=== PATIENT | female | born 1995 | race Caucasian/White ===

== ENCOUNTER → 2018-07-17 13:32 | Outpatient (CLI) | payer BC, SELFPAY ==
[2018-07-17 11:57] VITALS: BMI 28.0
[2018-07-17 17:34] LABS: Chlamydia Trachomatis by PCR Negative (Negative); Neisserai gonorrhoeae by PCR Negative (Negative); Probe Check PASS; Sample Adequacy Control PASS; Specimen Processing Control PASS
[2018-07-19 12:45] LABS: HPV Reflexed? NOT INDICATED
== END ==
PROVIDERS: Family Provider Pediatrics; PCP Pediatrics; Referring Provider Nurse Practitioner Women's Health; Visit Provider Nurse Practitioner Women's Health
DX: Z12.4 Encounter for screening for malignant neoplasm of cervix (principal); Z11.3 Encounter for screening for infections with a predominantly sexual mode of transmission
CPT/HCPCS: 87491; 87591; 87624; 88175; G0145

== ENCOUNTER 2020-06-18 09:20 | Day surgery (SDC) | payer MEDICAID, SELFPAY ==
[2018-07-17 11:57] VITALS: BMI 28.0
[2020-06-18] VITALS (7 sets, daily range): BP systolic 105–127; BP diastolic 69–94; PULSE 60–83; RESP 14–16; TEMP 36.1–36.6; O2SAT 95–100; BMI 32.3
[2020-06-18 10:24] LABS: Internal QC Validated? YES +Cl - CLEAR BKGD; Pregnancy, Urine Negative Negative
[2020-06-18] MEDS: Lactated Ringers 1,000 ML 100 ML IV (10:47)
[2020-06-18] MEDS: Cefazolin 2 GM in 0.9% Normal Saline 100 ML IV (11:09)
[2020-06-18] MEDS: Epinephrine (1 mg/ml) 1 MG/ML VIAL (11:30)
[2020-06-18] MEDS: Bupiv/Epi 0.5% Mpf 30 ML Vial (11:45)
--- NOTE | 2020-06-18 11:59 | PCM.OPRPT ---
Report of Operation Date of Procedure: 06/18/20 Pre-Operative Diagnosis: Medial meniscus tear left knee Post-Operative Diagnosis: same Surgery/Procedure Performed:: Arthroscopic partial medial meniscectomy Type of Anesthesia:: General Anesthesiologist: Vicente George - Admit VTE Documentation VTE Present on Admission: No VTE Mechan Device Prophylaxis: SCD's, Thigh High SHAUNA Hose VTE Pharm Prophylaxis ordered?: No Reason prophylaxis not ordered:: Treatment Not Indicated
[2020-06-18] MEDS: HYDROcodone Bitartrate/Apap 5/325 Tablet PO (13:29)
== END 2020-06-18 13:57 | disposition home or self-care (01) ==
LOC: SDC 09:38 → AC 09:38
PROVIDERS: Anesthesiology; Referring Provider Orthopaedic Surgery; Visit Provider Orthopaedic Surgery
PROC: (CPT 29870; principal; 2020-06-18 10:35)
DX: S83.242A Other tear of medial meniscus, current injury, left knee, initial encounter (principal); X58.XXXA Exposure to other specified factors, initial encounter; Y93.9 Activity, unspecified; Y92.9 Unspecified place or not applicable; Y99.9 Unspecified external cause status; K21.9 Gastro-esophageal reflux disease without esophagitis; F32.9 Major depressive disorder, single episode, unspecified; F41.9 Anxiety disorder, unspecified; F17.210 Nicotine dependence, cigarettes, uncomplicated; Z20.828 Contact with and (suspected) exposure to other viral communicable diseases
CPT/HCPCS: 29881; 81025; 87426; C9803; J7120; J2405

== ENCOUNTER → 2021-07-04 08:40 | Outpatient (CLI) | payer MEDICAID, SELFPAY | PROVIDERS: Referring Provider Orthopaedic Surgery; Visit Provider Orthopaedic Surgery | DX: Z20.822 Contact with and (suspected) exposure to COVID-19 (principal) | CPT/HCPCS: 87426; C9803 ==

== ENCOUNTER 2021-07-11 10:37 | Outpatient (CLI) | payer MEDICAID, SELFPAY ==
[2021-07-11 12:20] LABS: Absolute Lymphocyte Count 1.86 X10^3/uL (0.83-4.51); Absolute Neutrophil Count 4.4 X10^3/uL (2.0-7.7); Basophil# 0.07 X10^3/uL; Basophil% 0.9 % (0-1); Eosinophil# 0.64 X10^3/uL; Eosinophils% 8.4 % (0-5); Hematocrit 45.8 % (37-47); Lymphocyte # 1.86 X10^3/ul (0.83-4.51); Lymphocyte % 24.4 % (19-41); Mean Corp Hgb Conc 32.8 g/dL (32-36); Mean Corpuscular Hgb 28.4 pg (27.0-32.0); Mean Corpuscular Volume 86.7 fL (81-99); Mean Platelet Vol. 10.4 fl (6.2-12.0); Monocyte# 0.65 X10^3/uL; Monocyte% 8.5 % (0-10); NRBC Flagged by Analyzer 0 % (0-5); Neutrophil # 4.37 X10^3/uL (2.7-7.7); Neutrophil % 57.5 % (47-70); Platelet Count 311 K/mm3 (150-450); RBC Distribution Width SD 40.8 fl (35.1-43.9); Red Blood Count 5.28 M/mm3 (4.2-5.4); White Blood Count 7.6 K/mm3 (4.4-11.0)
[2021-07-11 13:24] LABS: Anion Gap 7 (5-15); BUN 15 mg/dL (7-18); BUN/Creat Ratio 17.3 RATIO (10-20); Calcium,Total 9.4 mg/dL (8.5-10.1); Chloride 104 mmol/L (98-107); Creatinine, Serum 0.87 mg/dL (0.55-1.02); EST Glomerular Filtration Rate 85 mL/min (>60); Est Glom Filt Rate - Afr Amer 103 mL/min (>60); Glucose 83 mg/dL (74-106); Potassium 3.9 mmol/L (3.5-5.1); Sodium Level 135 mmol/L (136-145)
== END 2021-07-11 23:59 | disposition home or self-care (01) ==
LOC: MTLAB 10:38
PROVIDERS: PCP Internal Medicine Infectious Disease; Referring Provider Orthopaedic Surgery; Visit Provider Orthopaedic Surgery
DX: Z01.812 Encounter for preprocedural laboratory examination (principal)
CPT/HCPCS: 36415; 80048; 85025

== ENCOUNTER 2021-10-20 14:04 | Emergency (ER) | payer MEDICAID, SELFPAY ==
[2021-10-20 14:05] VITALS: BP 110/76; PULSE 91; RESP 16; TEMP 36.4; O2SAT 97; BMI 31.4
--- NOTE | 2021-10-20 14:13 | ED.RN ---
PT. WAS SCHEDULED FOR US TODAY AT 1630, BUT PAIN BECAME WORSE.
--- NOTE | 2021-10-20 14:19 | US_ITS ---
STUDY: ULTRASOUND OF THE FEMALE PELVIS - COMPLETE REASON FOR EXAM: Female, 26 years old. Pelvic pain -- New IUD placed 2 days ago LMP: 1 year ago. TECHNIQUE: Transvaginal TECHNICAL QUALITY: Adequate. COMPARISON: None. FINDINGS: The uterus is anteverted and is in a midline position. The uterus measures 6.7 cm x 4.1 cm x 3.1 cm. Normal uterine cervix. The endometrium measures 4 mm in thickness, and is hyperechoic. There is no demonstrated endometrial mass. There is no demonstrated myometrial mass. I.U.D. - The patient does have an I.U.D. The right ovary is visualized. The right ovary measures 3.3 cm x 2.1 cm x 2.9 cm. There is no right ovarian cyst or ovarian mass. There is no visualized right adnexal mass or complex lesion. There is normal arterial and normal venous vascularity. The left ovary is visualized. The left ovary measures 2.8 cm x 1.7 cm x 2.1 cm. There is no left ovarian cyst or ovarian mass. There is no visualized left adnexal mass or complex lesion. There is normal arterial and normal venous vascularity. There is no fluid in the cul-de-sac. US/Transvaginal Non- IMPRESSION: Normal female pelvis. IUD is in good position. Electronically Signed: Dominguez Rausch MD at 15:20 EDT ,
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
[2021-10-20] MEDS: Ondansetron 4 MG/2 ML Vial IV (14:30)
[2021-10-20] MEDS: Ketorolac 15 MG/ML Vial IV (14:30)
[2021-10-20] MEDS: 0.9% Normal Saline 1,000 ML 1000 ML IV (14:30)
[2021-10-20 15:35] VITALS: BP 106/73; PULSE 73; RESP 14; O2SAT 100
[2021-10-20 16:55] VITALS: BP 106/72; PULSE 77; RESP 18; O2SAT 96
== END 2021-10-20 16:57 | disposition home or self-care (01) ==
PROVIDERS: Emergency Provider Emergency Medicine; PCP Internal Medicine Infectious Disease; Visit Provider Emergency Medicine
DX: R10.2 Pelvic and perineal pain (principal); F17.210 Nicotine dependence, cigarettes, uncomplicated; Z97.5 Presence of (intrauterine) contraceptive device
CPT/HCPCS: 76830; 93976; 96361; 96374; 96375; 99283; J7030; A4216; J2405

== ENCOUNTER → 2022-01-10 | Outpatient (CLI) | payer MEDICAID, SELFPAY ==
[2022-01-12 15:10] LABS: HPV Reflexed? NOT INDICATED
== END | disposition home or self-care (01) ==
LOC: LABSPEC 12:16
PROVIDERS: PCP Internal Medicine Infectious Disease; Visit Provider Nurse Practitioner Women's Health
DX: Z12.4 Encounter for screening for malignant neoplasm of cervix (principal)
CPT/HCPCS: 88175; G0145

== ENCOUNTER 2022-05-12 12:30 | Outpatient (RCR) | payer MEDICAID, SELFPAY ==
--- NOTE | 2022-04-14 10:48 | HP.PTEVAL ---
Patient's Visit Information PALLAVI FAY is a 26 year old F referred to Physical Therapy by Dr. Shabbir Emerson DO with a diagnosis of L medial meniscus. Date of Evaluation: 04/14/22 Physical Therapist: Vicente Davis, DPT, OCS, CSCS - Visit Plan Frequency: 2x /Week Duration: 4-6 Weeks Plan: 2x/week for 4-6 weeks for. knee flkexion ROM. quad and HS stretches. hip and knee strength. in pool and progress to I. - Subjective L knee torn meniscus and had two surgeries. First injured playing soccer in 2010. First surgery 2019 partial meniscectomy. Corinne 2021 chondroplasty adn meniscectomy. [id number] dad's dog up and down steps and heard a pop and caused pain. hard to get up now from sitting. This latest injury was a month or so ago. L groin is where the pain is. knee also hurts after walking 9000 steps yesterday and knee swelled up. 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 sienna said she has severe OA in L knee. On prednisone recently and meloxicam currently. latest surgery helped a little but less than 50%. Had therapy [facility] earlier in the year and heard it pop and hurt again, she thinks it is torn. Insurance wants therapy before MRI. Been to therapy at least twelve times and it does not help. Sleep is OK with trazadone - Pain L knee Pain Intensity (Out of 10): 5 Pain Intensity Range: 2, 9 Comment: transition hurts - Objective L antalgia into PT today, trasnfers and walks I, steps reciprocally but hurts L knee. L knee aROM is full but last few degrees of flexion painful anterior knee. 0-135 B. hip and ankle AROM wFL B. tightness in HS min and quad L max, B ITB min. Tender to tocuh L patella lig, anterior joint line distal to very small patella whcih are unstable. reflexes 2/3 B patella and achilles. Sensation WNL to gross light touch. strength L hip rot and abd , ext 3/5, flexion 3+, R side is 4. knee strength painful ext L and 3+ and 4- HS with some pain anterior. R is 4/5. ankle strength is 4+ B. - ant drawer. - post sag. + patellar grind L. - bouince home - Balance/Special Test Scores Lower Extremity Functional Score: 35 - Goals Goal 1:: Pain in knee 0-3/10 at all times and 50% better Goal Time Frame: 4-6 Weeks Goal 2:: Pt able to work without incrasing pain Goal Time Frame: 4-6 Weeks Goal 3:: steps reciprocally without hesitation/pain increase Goal Time Frame: 4-6 Weeks Goal 4:: LEFS 55 Goal Time Frame: 4-6 Weeks - Rehabilitation Potential Physical Therapy Diagnosis: L knee pain poorly managed. Rehabilitation Potential: Good - Anticipated Interventions Patient/Client Instruction: Educate patient on: Condition, Plan of Care For the Purpose of:: To decrease pain, To increase ROM, To improve nutrient delivery to tissue, To improve muscle performance and motor function Therapeutic Exercise to Include: Strength training, Flexibilty training, In an aquatic setting, Passive ROM, Active ROM For the Purpose of:: To decrease pain, To improve nutrient delivery to tissue, To improve muscle performance and motor function, To improve performance and independence with ADL's Thank you for the opportunity to evaluate your patient. For Medicare and Medicare HMO plans, please review the plan of care and approve it. It will need to be FAXED BACK to us at [phone] for Medicare purposes. For Medicare only, by signing this I certify the plan of care. Please let me know if there are questions or concerns regarding this plan of care. Physician Signature: Date:
--- NOTE | 2022-07-20 17:52 | HP.PT.NRP ---
PALLAVI FAY was seen in my office for initial evaluation on 04/14/22. The following Plan of Care was established for this patient: Initial Frequency: 2x /Week Initial Duration: 4-6 Weeks Patient/Client Instruction: Educate patient on: Condition, Plan of Care For the Purpose of:: To decrease pain, To increase ROM, To improve nutrient delivery to tissue, To improve muscle performance and motor function Therapeutic Exercise to Include: Strength training, Flexibilty training, In an aquatic setting, Passive ROM, Active ROM For the Purpose of:: To decrease pain, To improve nutrient delivery to tissue, To improve muscle performance and motor function, To improve performance and independence with ADL's This patient was last seen in our office 05/12/22. Pertinent comments regarding their Physical therapy will appear below: Pt seen 9 visits of POC and was 80+% better. Was to continue for two more weeks of therapy but cancelled all of those . AT this point, it has been over 2 months and I will discontinue due to nonattendance. At this point I will be discontinuing this patient from physical therapy. I would be happy to see this patient again in the future if found appropriate by the physician. Thank you! Vicente Davis, DPT, OCS, CSCS Balance/Gait/Functional tests - Balance/Special Test Scores Lower Extremity Functional Score: 56
== END 2022-05-12 19:00 | disposition home or self-care (01) ==
LOC: PT 12:30
PROVIDERS: PCP Internal Medicine Infectious Disease; Referring Provider Orthopaedic Surgery; Visit Provider Orthopaedic Surgery
DX: S83.242D Other tear of medial meniscus, current injury, left knee, subsequent encounter (principal)
CPT/HCPCS: 97113; 97161; 97530

== ENCOUNTER 2023-03-31 13:55 | Emergency (ER) | payer MEDICAID, SELFPAY ==
[2023-03-31 13:56] VITALS: BP 127/75; PULSE 83; RESP 16; TEMP 36.3; O2SAT 98; BMI 69.1
--- NOTE | 2023-03-31 14:20 | RAD_ITS ---
INDICATION: PAIN EXAMINATION/TECHNIQUE: X-RAY - RIGHT XR Hand Min 3 Views 3 VIEWS COMPARISON: 12/26/2013. FINDINGS: SOFT TISSUES: No soft tissue swelling or gas. No radiopaque foreign body. BONES/JOINTS: No acute fracture or subluxation.. Normal alignment. Preservation of the joint space.. No sclerotic or destructive changes observed. RAD/Hand Min 3 Views IMPRESSION: No evidence of acute fracture or dislocation. Electronically Signed: Adiel Ny MD at 15:04 EDT ,
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
[2023-03-31] MEDS: oxyCODONE 5 MG Tablet PO (14:44)
== END 2023-03-31 15:34 | disposition home or self-care (01) ==
LOC: ED 14:57
PROVIDERS: Emergency Provider Emergency Medicine; PCP Internal Medicine Infectious Disease; Visit Provider Emergency Medicine
DX: S60.221A Contusion of right hand, initial encounter (principal); M79.641 Pain in right hand; F17.210 Nicotine dependence, cigarettes, uncomplicated; W22.09XA Striking against other stationary object, initial encounter
CPT/HCPCS: 73130; 99282

== ENCOUNTER 2024-02-06 13:51 | Emergency (ER) | payer MEDICAID, SELFPAY ==
[2024-02-06 13:51] VITALS: BP 124/79; PULSE 65; RESP 18; TEMP 36.5; O2SAT 99; BMI 29.0
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
--- NOTE | 2024-02-06 14:38 | CT_ITS ---
EXAM: CT ABDOMEN AND PELVIS WITH INTRAVENOUS CONTRAST CLINICAL INDICATION: Abdominal pain TECHNIQUE: Helically acquired images were obtained of the abdomen and pelvis with intravenous contrast. This CT exam was performed using one or more of the following dose reduction techniques: automated exposure control, adjustment of the mA and/or kV according to patient size, and/or use of iterative reconstruction technique. CONTRAST: IV 75mL [id number] COMPARISON: No relevant prior studies available. FINDINGS: LOWER THORAX: Normal. Lung bases are clear. No cardiomegaly. No pericardial effusion. ABDOMEN: LIVER: Normal. Homogeneous. No focal mass. GALLBLADDER AND BILE DUCTS: Normal. No calcified gallstones. No gallbladder distention or wall edema. No intra- or extrahepatic biliary ductal dilation. PANCREAS: Normal. No focal cystic or solid mass. SPLEEN: Normal. Normal size without focal cystic or solid mass. ADRENALS: Normal. No nodules. KIDNEYS AND URETERS: Normal. Normal renal size and position. No hydronephrosis. STOMACH AND BOWEL: Normal. No bowel distention. No focal inflammatory change. PELVIS: APPENDIX: Appendix is visualized and normal in appearance. BLADDER: Normal. REPRODUCTIVE: 2.2 cm right ovarian follicular cyst or corpus luteum. ABDOMEN and PELVIS: INTRAPERITONEAL SPACE: Normal. No ascites or other fluid collection. No free air. BONES/JOINTS: No suspicious lytic or blastic abnormality. SOFT TISSUES: Normal. No discrete abdominal or pelvic wall hernia. VASCULATURE: Normal. Abdominal aorta is non-dilated. LYMPH NODES: Normal. No enlarged lymph nodes. TUBES, LINES AND DEVICES: Intrauterine device (IUD) in the endometrial canal. CT/Abdomen/Pelvis W IV Cont ONLY IMPRESSION: No acute abdominal or pelvic abnormality. Electronically Signed: Ugo Bansal MD at 16:25 EDT ,
[2024-02-06] MEDS: Ondansetron 4 MG/2 ML Vial IV (15:02)
[2024-02-06] MEDS: Mag /Aluminum/Simeth WCH UDC 30 ML ORAL.SUSP PO (15:02)
[2024-02-06] MEDS: 0.9% Normal Saline (1000mL) 1,000 ML 999 ML IV (15:02)
[2024-02-06] MEDS: Lidocaine 2% Viscous15 ML UDC 15 ML PO (15:02)
[2024-02-06 15:09] LABS: Bacteria 0 SEEN /hpf (None Seen); Mucous, Urine 0 SEEN /hpf (<or=2+); Red Blood Cells-Urine 0 SEEN /hpf (0-5); White Blood Cells 0 SEEN /hpf (0-5)
[2024-02-06 15:15] LABS: Absolute Lymphocyte Count 2.35 X10^3/uL (0.83-4.51); Basophil# 0.05 X10^3/uL; Basophil% 0.5 % (0-1); Eosinophil# 0.48 X10^3/uL; Eosinophils% 4.4 % (0-5); Hematocrit 43.1 % (37-47); Hemoglobin 14.3 g/dL (12.0-15.0); Lymphocyte # 2.35 X10^3/ul (0.83-4.51); Lymphocyte % 21.4 % (19-41); Mean Corp Hgb Conc 33.2 g/dL (32-36); Mean Corpuscular Hgb 29.5 pg (27.0-32.0); Mean Corpuscular Volume 88.9 fL (81-99); Mean Platelet Vol. 10.4 fl (6.2-12.0); Monocyte# 1.06 X10^3/uL; Monocyte% 9.6 % (0-10); NRBC Flagged by Analyzer 0 % (0-5); Neutrophil # 7.02 X10^3/uL (2.7-7.7); Neutrophil % 63.8 % (47-70); Platelet Count 282 K/mm3 (150-450); RBC Distribution Width CV 13.1 % (11.6-14.6); RBC Distribution Width SD 42.8 fl (35.1-43.9); Red Blood Count 4.85 M/mm3 (4.2-5.4)
[2024-02-06 15:18] LABS: Color, Urine Yellow (Yellow); Glucose, Dipstick Normal (Normal); Ketone-Dipstick Negative (Negative); Leukocyte Esterase-Dipstick Negative /ul (Negative); Nitrite-Dipstick Negative (Negative); Occult Blood-Urine Negative /ul (Negative); Protein-Dipstick Negative (Negative); Specific Gravity, Urine 1.015 (1.002-1.030); Urine Bilirubin Dipstick Negative (Negative); Urine Clarity Clear (Clear); Urine Urobilinogen Normal (Normal)
[2024-02-06 15:23] LABS: Internal QC Validated? YES +Cl - CLEAR BKGD
[2024-02-06 15:24] LABS: Pregnancy, Serum, hCG Quali. NEGATIVE Negative
[2024-02-06 15:27] LABS: AST(SGOT) 17 U/L (15-37); Alanine Aminotransfer ALT/SGPT 23 U/L (13-56); Albumin, Serum 3.6 g/dL (3.2-5.0); Alkaline Phosphatase 59 U/L (45-117); Anion Gap 4 (5-15); BUN 9 mg/dL (7-18); BUN/Creat Ratio 11.8 RATIO (10-20); Calcium,Total 9.1 mg/dL (8.5-10.1); Chloride 107 mmol/L (98-107); Creatinine, Serum 0.76 mg/dL (0.55-1.02); EST Glomerular Filtration Rate 97 mL/min (>60); Est Glom Filt Rate - Afr Amer 118 mL/min (>60); Estimated Creatinine Clearance 100.16 ml/min; Globulin 3.6 g/dL (2.2-4.2); Glucose 90 mg/dL (74-106); Lipase 44 U/L (13-75); Potassium 3.5 mmol/L (3.5-5.1); Protein, Total 7.2 g/dL (6.4-8.2); Sodium Level 139 mmol/L (136-145)
[2024-02-06 15:27] LABS: Squamous Epithelial Cells - UA 0-5 SEEN /hpf (5-10)
[2024-02-06 15:51] VITALS: BP 120/68; PULSE 80; RESP 16; O2SAT 99
[2024-02-06 16:38] VITALS: BP 121/78; PULSE 74; RESP 16; TEMP 36.2; O2SAT 96
== END 2024-02-06 16:44 | disposition home or self-care (01) ==
PROVIDERS: Emergency Provider Emergency Medicine; PCP Internal Medicine Infectious Disease; Visit Provider Emergency Medicine
DX: R10.13 Epigastric pain (principal); R11.0 Nausea; F12.90 Cannabis use, unspecified, uncomplicated; F17.210 Nicotine dependence, cigarettes, uncomplicated
CPT/HCPCS: 74177; 80053; 81001; 83690; 84703; 85025; 96361; 96374; 99284; J7030; Q9967; A4216; J2405

== ENCOUNTER → 2025-01-21 | Outpatient (CLI) | payer MEDICAID, SELFPAY | END | disposition home or self-care (01) | LOC: LABSPEC 16:20 | PROVIDERS: PCP Internal Medicine Infectious Disease; Referring Provider Nurse Practitioner Family; Visit Provider Nurse Practitioner Family | DX: Z12.4 Encounter for screening for malignant neoplasm of cervix (principal) | CPT/HCPCS: 88175; G0145 ==